=== PATIENT | female | born 1945 | race Caucasian/White ===

== ENCOUNTER → 2019-07-17 13:51 | Outpatient (CLI) | payer MEDICARE, SELFPAY ==
--- NOTE | 2019-07-17 | DI.RAD.S_ITS ---
PROCEDURE: XR LUMBAR SPINE 2-3V INDICATIONS: Sciatica, unspecified side TECHNIQUE: 2 views of the lumbar spine were acquired. COMPARISON: None. FINDINGS: Bones: 5 [id number] vertebrae are present. There is normal bony alignment. No vertebral body compression fractures. No suspicious bony lesions. Degenerative disc disease is mild superiorly and moderate at L45. It is moderately severe at L5-S1 and facet osteoarthritis is moderately severe this level also. Soft tissues: Overlying bowel gas pattern is normal. No suspicious soft tissue calcifications. IMPRESSION: Degenerative changes are most prominent over the lower 2 levels of the LS spine and especially at L5-S1 where significant spinal and foraminal stenosis likely is present. No compression fracture. Dictated by: Denzel Murphy M.D. on 07/17/2019 at 15:03 Approved by: Denzel Murphy M.D. on 07/17/2019 at 15:04
== END ==
PROVIDERS: PCP Family Medicine; Visit Provider Family Medicine
DX: M54.9 Dorsalgia, unspecified (principal); M51.16 Intervertebral disc disorders with radiculopathy, lumbar region; M51.17 Intervertebral disc disorders with radiculopathy, lumbosacral region; M47.817 Spondylosis without myelopathy or radiculopathy, lumbosacral region
CPT/HCPCS: 72100

== ENCOUNTER → 2021-10-01 10:02 | Outpatient (CLI) | payer MEDICARE, SELFPAY ==
[2021-10-01 19:26] LABS: Add Manual Diff / Slide Review NO; Basophils Absolute Auto 0 /uL (0-100); Basophils Percent Auto 0.7 % (0-2); Eosinophils Absolute Auto 100 /uL (0-450); Hematocrit 44.3 % (36-46); Hemoglobin 14.8 g/dL (12.0-16.0); Lymphocytes Absolute Auto 2100 /uL (1100-4500); Mean Corpuscular HGB Conc 33.5 % (30-36); Mean Corpuscular Hemoglobin 30.5 PG (26-34); Monocytes Absolute Auto 500 /uL (0-900); Monocytes Percent Auto 7.7 % (3-14); Neutrophils Absolute Auto 3400 /uL (1500-7000); Neutrophils Percent Auto 55.6 % (50-75); Platelet Count 305 X10^3/uL (150-400); Red Blood Cell Count 4.87 X10^6/uL (4.0-5.2); Red Cell Distribution Width 13.9 % (11.6-14.8); White Blood Cell Count 6.2 X10^3/uL (4.5-11.0)
[2021-10-01 19:38] LABS: Hemoglobin A1C% w Est Avg Glu 5.8 % (4.0-6.0)
[2021-10-01 19:44] LABS: Alanine Aminotransferase 25 IU/L (<35); Albumin 4.3 g/dL (3.5-5.0); Albumin Globulin Ratio 1.4 (1.0-2.8); Alkaline Phosphatase 56 U/L (38-126); Aspartate Aminotransferase 30 IU/L (14-36); BUN Creatinine Ratio 14.7 (6-22); Bilirubin Total 0.5 mg/dL (0.2-1.3); Blood Urea Nitrogen 11 mg/dL (7-17); Calcium 9.7 mg/dL (8.4-10.2); Carbon Dioxide 26 mmol/L (22-32); Chloride 104 mmol/L (98-107); Cholesterol 284 mg/dL (140-199); Estimated Glomerular Filt Rate > 60.0 mL/min (>60); Glucose 89 mg/dL (80-110); HDL Cholesterol 75 mg/dL (40-60); HEMOLYSIS < 15 (0-50); LDL Cholesterol Calculated 187 mg/dL (<100); Potassium 4.1 mmol/L (3.4-5.1); Sodium 138 mmol/L (137-145); Total Protein 7.3 g/dL (6.3-8.2); Triglycerides 108 mg/dL (35-150)
== END ==
PROVIDERS: PCP Family Medicine; Visit Provider Physician Assistant
DX: Z13.1 Encounter for screening for diabetes mellitus (principal); E78.00 Pure hypercholesterolemia, unspecified; M85.80 Other specified disorders of bone density and structure, unspecified site; K21.9 Gastro-esophageal reflux disease without esophagitis; Z78.0 Asymptomatic menopausal state
CPT/HCPCS: 80053; 80061; 83036; 85025

== ENCOUNTER → 2023-06-29 | Outpatient (CLI) | payer MEDICARE, SELFPAY ==
--- NOTE | 2023-06-29 11:21 | DI.MG.S_ITS ---
BILATERAL DIGITAL SCREENING MAMMOGRAM 3D/2D WITH CAD: 06/29/2023 CLINICAL: Routine screening. Family history of breast cancer. Comparison is made to exam dated: 05/22/2019 mammogram - outside location. Both breasts are heterogeneously dense, which may obscure small masses (category c / 51-75% glandular tissue). Current study was also evaluated with a Computer Aided Detection (CAD) system. There is a focal asymmetry in the left breast at 7 o'clock anterior depth. This is more prominent. No other significant masses, calcifications, or other findings are seen in either breast. IMPRESSION: INCOMPLETE: NEEDS ADDITIONAL IMAGING EVALUATION The focal asymmetry in the left breast is indeterminate. Additional views with possible ultrasound are recommended. Based on the Tyrer Cuzick model (a risk assessment model) the patient's lifetime risk is 6.8% and her 10 year risk is 0.0%. According to the ACR, ACS, and NCCN guidelines, an annual breast MRI exam along with mammogram is recommended if the patient's lifetime risk is 20% or greater. This exam was interpreted at Station ID: [id number]. NOTE: For mammograms, a report in lay terms will be sent to the patient. Approximately 15% of breast malignancies will not be visualized mammographically. In the management of a palpable breast mass, a negative mammogram must not discourage biopsy of a clinically suspicious lesion. Electronically Signed By: Gildardo Bettencourt M.D. [facility]/:07/06/2023 11:15:48 letter sent: Additional Imaging Needed ACR BI-RADS Category 0: Incomplete 3340F
== END ==
PROVIDERS: PCP Family Medicine; Referring Provider Family Medicine; Visit Provider Family Medicine
DX: Z12.31 Encounter for screening mammogram for malignant neoplasm of breast (principal); Z80.3 Family history of malignant neoplasm of breast
CPT/HCPCS: 77063; 77067

== ENCOUNTER → 2023-07-12 09:23 | Outpatient (CLI) | payer MEDICARE, SELFPAY ==
[2023-07-12 19:14] LABS: Add Manual Diff / Slide Review NO; Basophils Absolute Auto 0 /uL (0-100); Basophils Percent Auto 0.7 % (0-2); Eosinophils Absolute Auto 100 /uL (0-450); Eosinophils Percent Auto 2.2 % (2-4); Hematocrit 44.2 % (36-46); Hemoglobin 14.9 g/dL (12.0-16.0); Lymphocytes Absolute Auto 2200 /uL (1100-4500); Lymphocytes Percent Auto 33.5 % (25-40); Mean Corpuscular HGB Conc 33.8 % (30-36); Mean Corpuscular Hemoglobin 31.5 PG (26-34); Mean Corpuscular Volume 93.3 fL (80-100); Monocytes Absolute Auto 500 /uL (0-900); Monocytes Percent Auto 8.3 % (3-14); Neutrophils Absolute Auto 3600 /uL (1500-7000); Neutrophils Percent Auto 55.3 % (50-75); Platelet Count 288 X10^3/uL (150-400); Red Blood Cell Count 4.74 X10^6/uL (4.0-5.2); Red Cell Distribution Width 14.1 % (11.6-14.8); White Blood Cell Count 6.5 X10^3/uL (4.5-11.0)
[2023-07-12 19:28] LABS: Alanine Aminotransferase 23 IU/L (<35); Albumin Globulin Ratio 1.3 (1.0-2.8); Alkaline Phosphatase 62 U/L (38-126); Aspartate Aminotransferase 27 IU/L (14-36); Bilirubin Total 0.6 mg/dL (0.2-1.3); Blood Urea Nitrogen 15 mg/dL (7-17); Calcium 9.8 mg/dL (8.4-10.2); Carbon Dioxide 26 mmol/L (22-32); Chloride 103 mmol/L (98-107); Cholesterol 285 mg/dL (140-199); Estimated Glomerular Filt Rate > 60 mL/min (>60); Globulin 3.2 g/dL (1.7-4.1); Glucose 95 mg/dL (80-110); HDL Cholesterol 85 mg/dL (40-60); HEMOLYSIS < 15 (0-50); LDL Cholesterol Calculated 184 mg/dL (<100); Potassium 4.6 mmol/L (3.4-5.1); Sodium 136 mmol/L (137-145); Total Protein 7.2 g/dL (6.3-8.2); Triglycerides 80 mg/dL (35-150)
[2023-07-12 19:58] LABS: TSH w/ Reflex to FT4 3.22 uIU/mL (0.47-4.68)
== END ==
PROVIDERS: PCP Family Medicine; Visit Provider Family Medicine
DX: E78.2 Mixed hyperlipidemia (principal); M85.80 Other specified disorders of bone density and structure, unspecified site; R73.03 Prediabetes; Z78.0 Asymptomatic menopausal state; Z13.820 Encounter for screening for osteoporosis; I48.91 Unspecified atrial fibrillation
CPT/HCPCS: 80053; 80061; 83036; 84443; 85025

== ENCOUNTER → 2023-08-11 12:00 | Outpatient (CLI) | payer MEDICARE, SELFPAY ==
--- NOTE | 2023-08-11 12:02 | DI.US.S_ITS ---
LIMITED ULTRASOUND OF LEFT BREAST AND AXILLA: 08/11/2023 CLINICAL: Additional evaluation requested from prior study. Comparison is made to exams dated: 08/11/2023 mammogram, 06/29/2023 mammogram - [facility], and 05/22/2019 mammogram - outside location. Color flow and real-time ultrasound of the left breast 6-8 o'clock, and axilla regions were performed. [place] scale images of the real-time examination were reviewed. There is a 1.3 cm x 1.5 cm x 0.7 cm irregular mass with a microlobulated margin in the left breast at 7 o'clock anterior depth 2 cm from the nipple. This correlates with mammography findings. There are calcifications within the mass. No significant abnormalities were seen sonographically in the left axilla. IMPRESSION: SUSPICIOUS OF MALIGNANCY The 1.3 cm x 1.5 cm x 0.7 cm irregular mass in the left breast is suspicious of malignancy. There is a calcification within the mass. These correlate with mammography. Mammographic finding is possibly present in 2019, but this seems more prominent today with non-circumscribed margins. An ultrasound guided biopsy is recommended. No significant abnormalities were seen sonographically in the left axilla. This exam was interpreted at Station ID: [id number]. Electronically Signed By: Jason back/:08/11/2023 13:01:10 letter sent: Biopsy Required Ultrasound BI-RADS: 4 Suspicious for malignancy
--- NOTE | 2023-08-11 12:02 | DI.MG.S_ITS ---
UNILATERAL LEFT DIGITAL DIAGNOSTIC MAMMOGRAM 3D/2D WITH ADDITIONAL VIEWS: 08/11/2023 CLINICAL: Additional evaluation requested from prior study. Comparison is made to exams dated: 06/29/2023 mammogram - [facility] and 05/22/2019 mammogram - outside location. The left breast is heterogeneously dense, which may obscure small masses (category c / 51-75% glandular tissue). There is a 1.2 cm irregular mass with an indistinct margin in the left breast at 7 o'clock anterior depth. This is seen in additional views. Small peripheral popcorn or dystrophic calcification. No other significant masses or calcifications are seen in the breast. IMPRESSION: INCOMPLETE: NEEDS ADDITIONAL IMAGING EVALUATION The 1.2 cm irregular mass in the left breast is indeterminate. An ultrasound is recommended. Based on the Tyrer Cuzick model (a risk assessment model) the patient's lifetime risk is 6.8% and her 10 year risk is 0.0%. According to the ACR, ACS, and NCCN guidelines, an annual breast MRI exam along with mammogram is recommended if the patient's lifetime risk is 20% or greater. This exam was interpreted at Station ID: [id number]. NOTE: For mammograms, a report in lay terms will be sent to the patient. Approximately 15% of breast malignancies will not be visualized mammographically. In the management of a palpable breast mass, a negative mammogram must not discourage biopsy of a clinically suspicious lesion. Electronically Signed By: Jason Carter M.D. lc/:08/11/2023 12:58:17 ACR BI-RADS Category 0: Incomplete 3340F
--- NOTE | 2023-08-11 12:02 | DI.RAD.S_ITS ---
Bone Density Report Name: STEPHANIE SELLERS Age: 78 Sex: Female Ethnicity: White Date of : 1945 Indication: postmenopausal; screening for osteoporosis; Referring Provider: BRAD HUSAIN Study: Bone densitometry was performed. Exam Date: August 11, 2023 Accession number: [id number] Bone Density: Region BMD T-score Z-score Classification AP Spine(L1-L4) 0.782 -2.4 0.1 Osteopenia Femoral Neck (Left) 0.596 -2.3 -0.1 Osteopenia Total Hip (Left) 0.776 -1.4 0.5 Osteopenia Femoral Neck (Right) 0.583 -2.4 -0.3 Osteopenia Total Hip (Right) 0.766 -1.4 0.4 Osteopenia Total Hip Mean 0.771 -1.4 0.5 Osteopenia World Health Organization criteria for BMD impression classify patients as: Normal (T-score at or above -1.0), Osteopenia (T-score between -1.0 and -2.5), or Osteoporosis (T-score at or below -2.5). 10-year Fracture Risk(1): Major Osteoporotic Fracture 16% Hip Fracture 4.7% Reported Risk Factors: [place] (), Neck BMD=0.583, BMI=29.6 (1) FRAX(R) Version 3.08. Fracture probability calculated for an untreated patient. Fracture probability may be lower if the patient has received treatment. Impression: The patient has low bone mass, based on the Total Spine T-score. The patient has an estimated ten-year risk of hip fracture of 4.7% and an estimated ten-year risk of major fracture of 16%, based on the WHO FRAX algorithm. Discussion: BONE DENSITY IS LOW AT ONE OR MORE SKELETAL SITES. THE PATIENT'S BMD AND CLINICAL RISK FACTORS CONTRIBUTE TO THIS PATIENT'S INCREASED RISK OF FRACTURE. This patient's lowest T-score is low at one or more skeletal sites. It meets the World Health Organization's (WHO) criteria for low bone mass (T-score between -1.0 and -2.5). The patient's 10-year risk of hip fracture as calculated by FRAX exceeds the threshold where pharmacological therapy is recommended by the National Osteoporosis Foundation (NOF). However, all treatment decisions require clinical judgment and consideration of individual patient factors, including patient preferences, comorbidities, previous drug use, risk factors not captured in the FRAX model (e.g., frailty, falls, vitamin D deficiency, increased bone turnover, interval significant decline in bone density) and possible under or overestimation of fracture risk by FRAX. The patient should follow a healthful lifestyle (good nutrition with adequate calcium and vitamin D, and appropriate weight-bearing exercise). Follow-Up: Consider a repeat BMD and Vertebral Fracture Assessment (VFA) exam in 2 years or sooner if medically necessary, to reassess this patient's status. Reported by: COBY MCKINNON M.D. on 08/11/2023 1:55:00 PM.
--- NOTE | 2023-08-11 12:02 | DI.US.S_ITS ---
PROCEDURE: US SOFT TISSUE HEAD AND NECK INDICATIONS: posterior cervical lymph nodes, just below ears TECHNIQUE: Real-time scanning was performed of the neck region of interest, with image documentation. COMPARISON: None. FINDINGS: No sonographic abnormality in the area of clinical concern in the bilateral upper cervical neck. Morphologically normal cervical lymph nodes are visualized. IMPRESSION: No sonographic abnormality in the area of clinical concern in the upper cervical neck. Approved by: Zenaida Tucker M.D. on 08/12/2023 at 0:44
== END ==
PROVIDERS: PCP Family Medicine; Referring Provider Family Medicine; Visit Provider Family Medicine
DX: N63.24 Unspecified lump in the left breast, lower inner quadrant (principal); R92.8 Other abnormal and inconclusive findings on diagnostic imaging of breast; R59.1 Generalized enlarged lymph nodes; Z13.820 Encounter for screening for osteoporosis; M85.88 Other specified disorders of bone density and structure, other site; Z78.0 Asymptomatic menopausal state; R73.03 Prediabetes; E78.2 Mixed hyperlipidemia; I48.91 Unspecified atrial fibrillation
CPT/HCPCS: 76536; 76642; 77065; 77080; G0279

== ENCOUNTER → 2024-08-16 14:18 | Outpatient (CLI) | payer MEDICARE, SELFPAY | PROVIDERS: PCP Family Medicine; Visit Provider Physician Assistant Medical | DX: N39.0 Urinary tract infection, site not specified (principal) | CPT/HCPCS: 87086 ==

== ENCOUNTER → 2024-10-24 09:58 | Outpatient (CLI) | payer MEDICARE, SELFPAY ==
[2024-10-24 19:29] LABS: Add Manual Diff / Slide Review NO; Basophils Absolute Auto 100 /uL (0-100); Eosinophils Absolute Auto 200 /uL (0-450); Eosinophils Percent Auto 3.3 % (2-4); Hematocrit 43.5 % (36-46); Hemoglobin 14.6 g/dL (12.0-16.0); Lymphocytes Absolute Auto 2200 /uL (1100-4500); Lymphocytes Percent Auto 38.5 % (25-40); Mean Corpuscular HGB Conc 33.7 % (30-36); Mean Corpuscular Hemoglobin 31.6 PG (26-34); Mean Corpuscular Volume 93.8 fL (80-100); Monocytes Absolute Auto 500 /uL (0-900); Neutrophils Absolute Auto 2800 /uL (1500-7000); Neutrophils Percent Auto 49.2 % (50-75); Platelet Count 296 X10^3/uL (150-400); Red Blood Cell Count 4.64 X10^6/uL (4.0-5.2); Red Cell Distribution Width 13.9 % (11.6-14.8); White Blood Cell Count 5.7 X10^3/uL (4.5-11.0)
[2024-10-24 19:42] LABS: Alanine Aminotransferase 22 IU/L (<35); Albumin 4.2 g/dL (3.5-5.0); Albumin Globulin Ratio 1.5 (1.0-2.8); Alkaline Phosphatase 64 U/L (38-126); Aspartate Aminotransferase 28 IU/L (14-36); BUN Creatinine Ratio 19.7 (6-22); Bilirubin Total 0.4 mg/dL (0.2-1.3); Blood Urea Nitrogen 14 mg/dL (7-17); Calcium 9.5 mg/dL (8.4-10.2); Carbon Dioxide 23 mmol/L (22-32); Chloride 107 mmol/L (98-107); Cholesterol 212 mg/dL (140-199); Estimated Glomerular Filt Rate > 60 mL/min (>60); Globulin 2.8 g/dL (1.7-4.1); Glucose 98 mg/dL (80-110); HDL Cholesterol 82 mg/dL (40-60); HEMOLYSIS < 15 (0-50); LDL Cholesterol Calculated 113 mg/dL (<100); Potassium 4.4 mmol/L (3.4-5.1); Sodium 139 mmol/L (137-145); Triglycerides 86 mg/dL (35-150)
[2024-10-24 19:55] LABS: Hemoglobin A1C% w Est Avg Glu 5.3 % (4.0-6.0)
[2024-10-24 20:06] LABS: Thyroid Stimulating Hormone 3.69 uIU/mL (0.47-4.68)
== END ==
PROVIDERS: PCP Family Medicine; Visit Provider Family Medicine
DX: E78.5 Hyperlipidemia, unspecified (principal); R03.0 Elevated blood-pressure reading, without diagnosis of hypertension; R73.03 Prediabetes
CPT/HCPCS: 80053; 80061; 83036; 84443; 85025

== ENCOUNTER → 2025-07-13 13:31 | Outpatient (CLI) | payer MEDICARE, SELFPAY ==
--- NOTE | 2025-07-13 13:35 | DI.MRI.S_ITS ---
PROCEDURE: MR HAND LT WO CON INDICATIONS: left hand trigger fingers of the ring and small fingers TECHNIQUE: Noncontrast coronal T1 spin echo and T2 fast spin echo with fat saturation, axial proton density fast spin echo and T2 fast spin echo with fat saturation, sagittal T1 spin echo and STIR through the hand and fingers. COMPARISON: None. FINDINGS: Image quality: Diagnostic. Bones: The bones are normally aligned, without marrow contusions or fractures. No intra-osseous lesions. Partial-thickness articular cartilage thinning within the thumb carpometacarpal joint and radiocarpal joint. Interphalangeal joint(s): The accessory and proper collateral ligaments appear intact. The volar plate demonstrates normal morphology. The extensor central slips appear intact on sagittal images. Metacarpophalangeal joint(s): The accessory and proper collateral ligaments appear intact, as well as the volar plate and adjacent deep transverse metacarpal ligaments. The sagittal bands of the extensor beth appear normal. Extensor apparatus: The central slips insert normally on the middle phalangeal base. The conjoint and terminal tendons insert normally on the distal phalangeal bases. More proximal portions of the extensor tendons also appear normal. Flexor apparatus: Mild tendinosis and slight tenosynovitis of the long, ring, and small finger flexor digitorum profundus and superficialis tendons. No high-grade tear. No retraction. Otherwise the flexor digitorum superficialis and profundus tendons both appear intact. Mild thickening of the long, ring, and small A1 pulleys. No acute tear. Mild thickening of the ring finger A1 arianne with mild overlying subcutaneous fat edema. Soft tissues: Visualized muscles demonstrate normal bulk and internal signal. No intramuscular masses identified. No ganglion cysts. IMPRESSION: 1. Mild tendinosis and tenosynovitis of the long , ring, and small finger flexor and tendons without tear. Corresponding thickening and slight edema superficial to the long, ring and small finger A1 pulleys. This may correspond to the patient's reported trigger finger. 2. 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 Dictated by: Dav Martinez M.D. on 07/15/2025 at 15:28 Approved by: Dav Martinez M.D. on 07/15/2025 at 15:37
--- NOTE | 2025-07-13 13:35 | DI.MRI.S_ITS ---
PROCEDURE: MR HIP RT WO CON INDICATIONS: Right Gluteal calcific tendonapathy TECHNIQUE: Noncontrast coronal T1 spin echo and STIR through the bony pelvis. Coronal and axial T2 fast spin echo with fat saturation, sagittal T1 spin echo, and oblique axial T2 fast spin echo with fat saturation through the hip. COMPARISON: [facility] ([place]), CR, XR HIP W PEL IF DONE RT 2V, 11/29/2024, 12:12. FINDINGS: Image quality: Diagnostic. Right Hip (small FOV): Diffuse thinning of the weight-bearing femoral acetabular joint with areas of full-thickness thinning and fraying and small subchondral cystic change in the superior lateral acetabulum. No joint effusion. Intact ligamentum teres. Intrasubstance degeneration of the anterior superior to superior lateral labrum without discrete labral tear. No paralabral cyst. No fracture. No suspicious marrow replacing process. Lumbar spine: Degenerative disc disease at the lumbosacral junction. Sacroiliac joints/pubic symphysis: Mild joint space narrowing and small subchondral cystic change in the bilateral synovial sacroiliac joints consistent with osteoarthritis. No ankylosis.. Muscles/tendons/bursae: Moderate insertional tendinosis of the right gluteus medius and minimus with calcific tendinopathy of the lateral insertion of the right gluteus minimus and mild peritendinous edema and trace trochanteric bursitis. No high-grade gluteal cuff tear. Mild tendinosis and low-grade undersurface degenerative tearing of the right conjoint hamstring tendon origin. Otherwise the adductor brevis a chart is unremarkable. The iliopsoas is unremarkable. Neurovascular: Unremarkable. Pelvic viscera: Unremarkable, non-dedicated study. Subcutaneous tissues: Unremarkable. IMPRESSION: 1. Moderate calcific tendinosis of the right gluteus medius and minimus with trace right trochanteric bursitis. Correlate for symptoms of greater trochanteric pain syndrome. 2. Mild tendinosis of the right hamstring tendon origin with low-grade undersurface partial tearing of the conjoint hamstring tendon origin. 3. 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 4. Intrasubstance degeneration of the anterior superior to superior lateral labrum without discrete labral tear. Dictated by: Dav Martinez M.D. on 07/15/2025 at 15:22 Approved by: Dav Martinez M.D. on 07/15/2025 at 15:27
== END ==
LOC: MRI 13:32
PROVIDERS: PCP Family Medicine; Referring Provider Family Medicine; Visit Provider Physical Medicine & Rehabilitation
DX: S76.011A Strain of muscle, fascia and tendon of right hip, initial encounter (principal); M16.11 Unilateral primary osteoarthritis, right hip; M70.61 Trochanteric bursitis, right hip; M65.842 Other synovitis and tenosynovitis, left hand; M18.12 Unilateral primary osteoarthritis of first carpometacarpal joint, left hand; M65.312 Trigger thumb, left thumb
CPT/HCPCS: 73218; 73721